=== PATIENT | male | born 1960 | race Caucasian/White ===

== ENCOUNTER 2018-12-11 11:51 | Day surgery (SDC) | payer OTHER ==
[~2018-12-11] VITALS: Ht 185.4 cm; Wt 99.9 kg
[~2018-12-11 11:51] MED LIST: Aspir 8181 MG PO; CLIN300 PO; CYCL10 PO; DOXA4 PO; Doxazosin Mesyla4 MG PO; METO25ER PO; METOPROLOL SUCC25 MG PO; OXYC5 PO; RABE20 PO; RABEPRAZOLE SOD20 MG PO; ROPI.25 PO; Singulair10 MG PO; XARELTO15 MG PO; XARELTO20 MG PO
--- NOTE | 2018-12-11 12:30 | NUR ---
12/11/18 1230 THANIA DOLAN 1 IV ATTEMPT IN RHAND BY MA VEIN BLEW 2 IV ATTEMPT BY MA VALVE 3 ATTEMPT BY RN VALVE 4 ATTEMPT BY RN ON LH VALVE 5 ATTEMT BY CHARGE IN RAC VALVE 6 ATTEMPT BY CHARGE IN R THUMB SUCCESSFUL
--- NOTE | 2018-12-11 12:58 | NUR ---
12/11/18 1258 Carlitos Cobos ALSO USED THE FINK 60 FOR DILITATION.
== END 2018-12-11 13:35 | disposition home or self-care (01) ==
LOC: ORSCSDS 11:51
PROVIDERS: Internal Medicine Gastroenterology
PROC: 0DB58ZX Excision of Esophagus, Via Natural or Artificial Opening Endoscopic, Diagnostic (ICD-10-PCS; principal; 2018-12-11 13:00)
PROC: 0D757ZZ Dilation of Esophagus, Via Natural or Artificial Opening (ICD-10-PCS; principal; 2018-12-11 13:00)
PROC: 0DB68ZX Excision of Stomach, Via Natural or Artificial Opening Endoscopic, Diagnostic (ICD-10-PCS; principal; 2018-12-11 13:00)
PROC: 0D758ZZ Dilation of Esophagus, Via Natural or Artificial Opening Endoscopic (ICD-10-PCS; principal; 2018-12-11 13:00)
DX: R13.10 Dysphagia, unspecified (principal); K21.9 Gastro-esophageal reflux disease without esophagitis; K31.7 Polyp of stomach and duodenum; K20.0 Eosinophilic esophagitis; K22.2 Esophageal obstruction; J45.909 Unspecified asthma, uncomplicated; G47.33 Obstructive sleep apnea (adult) (pediatric); Z79.899 Other long term (current) drug therapy; Z79.82 Long term (current) use of aspirin
CPT/HCPCS: 88305; 88342; J2704; J7120

== ENCOUNTER 2022-09-12 09:05 | Emergency (ER) | payer OTHER ==
[~2022-09-12] VITALS: Ht 185.4 cm; Wt 102.5 kg
[2022-09-12] MEDS ORDERED: PRED10 PO (09:28)
[2022-09-12 09:45] VITALS: BP 108/72
[2022-09-14] MEDS ORDERED: PRED20 PO (04:48)
== END 2022-09-12 09:57 | disposition home or self-care (01) ==
LOC: ER 09:05
DX: L50.9 Urticaria, unspecified (principal); Z88.1 Allergy status to other antibiotic agents; Z79.899 Other long term (current) drug therapy; Z79.52 Long term (current) use of systemic steroids; Z79.82 Long term (current) use of aspirin; I10 Essential (primary) hypertension
CPT/HCPCS: 99282; J7512

== ENCOUNTER 2022-09-14 02:33 | Emergency (ER) | payer OTHER | END 2022-09-14 04:57 | disposition home or self-care (01) | LOC: ER 02:33 | DX: L50.9 Urticaria, unspecified (principal); Z88.1 Allergy status to other antibiotic agents; Z79.899 Other long term (current) drug therapy; Z79.52 Long term (current) use of systemic steroids; Z79.82 Long term (current) use of aspirin; I10 Essential (primary) hypertension ==

== ENCOUNTER 2024-04-26 08:15 | Day surgery (SDC) | payer OTHER ==
[~2024-04-26] VITALS: Ht 185.4 cm; Wt 109.3 kg
[2024-04-26] VITALS (12 sets, daily range): BP systolic 105–184; BP diastolic 57–124
[~2024-04-26 08:15] MED LIST changes: +LOSA50 PO; +Lactated Ringer's 1,000 ML IV SCH; +MELO7.5 PO; +PRED10 PO; +PRED20 PO
[2024-04-26] MEDS ORDERED: propofoL 20 ML IV ONE (08:16)
[2024-04-26] MEDS ORDERED: FentaNYL Citrate 50 MCG/ML 2 ML Injection ONE ×3 (08:16→11:10)
[2024-04-26] MEDS ORDERED: Midazolam HCl 1MG / ML 2ML Vial ONE (08:16)
--- NOTE | 2024-04-26 08:30 | NUR ---
Patient confirms NPO status and agrees with scheduled surgery. Pre-Op teaching done. Pt verbalizes understanding.Ambulatory in Day Surgery History, Chart, Medications and Allergies reviewed before start of procedure.Patient States Post-Procedure ride home has been arranged. Patient reports completing Chlorhexadine shower X2 prior to admission to hospital.
[2024-04-26] MEDS ORDERED: Bupivacaine 0.5% HCl 5 MG/ML 30MLVIAL ONE (09:11)
[2024-04-26] MEDS ORDERED: Bupivacaine 0.25% Epi 1:200000 30 ML Vial ONE (09:11)
[2024-04-26] MEDS ORDERED: Ondansetron HCl 2 MG / ML 2ML Vial ONE (09:30)
[2024-04-26] MEDS ORDERED: Ketorolac Tromethamine 30mg Vial ONE (09:30)
[2024-04-26] MEDS ORDERED: Dexamethasone Sod Phos 10 MG/ML 1ML VIAL ONE (09:30)
[2024-04-26] MEDS ORDERED: Phenylephrine HCl 100 MCG/ML-NS 10MLSYR (1MG/10ML) ONE (09:34)
[2024-04-26] MEDS ORDERED: Sugammadex Sodium 200 MG/2ML SDV (100 MG/ML) ONE (10:34)
[2024-04-26] MEDS ORDERED: OxyCODONE 5 mg/Acetamin 325 mg TABLET PO PRN (11:35)
--- NOTE | 2024-04-26 12:02 | NUR ---
PT UP GETTING DRESSED SLEF WITH STEADY GAIT. PAIN AT A TOLERABLE LEVEL AFTER RECEIVING PAIN PILL AT 11:48. IV OUT CATH INTACT, SITE CLEAR. DISCHARGE INSTRUCTIONS PROVIDED. VSS. ALL BELONNGS RETURNED TO PATIENT. GLASSES ON FACE.
== END 2024-04-26 23:00 | disposition home or self-care (01) ==
LOC: ORSCMMR 08:15 → ORD 09:30 → ORSCMMR 09:30
PROVIDERS: Surgery
PROC: 0WUF4JZ Supplement Abdominal Wall with Synthetic Substitute, Percutaneous Endoscopic Approach (ICD-10-PCS; principal; 2024-04-26 09:30)
PROC: 8E0W4CZ Robotic Assisted Procedure of Trunk Region, Percutaneous Endoscopic Approach (ICD-10-PCS; principal; 2024-04-26 09:30)
DX: K42.0 Umbilical hernia with obstruction, without gangrene (principal); I10 Essential (primary) hypertension; K21.9 Gastro-esophageal reflux disease without esophagitis; N40.0 Benign prostatic hyperplasia without lower urinary tract symptoms; Z79.899 Other long term (current) drug therapy
CPT/HCPCS: A9270; C1781; J1100; J1885; J2250; J2371; J2405; J2704; J3010; J7120

== ENCOUNTER → 2024-12-09 | Outpatient (CLI) | payer OTHER ==
[~2024-12-09] MED LIST changes: -Lactated Ringer's 1,000 ML IV SCH
[2024-12-09 10:27] LABS: BASOPHILS ABSOLUTE AUTO 0.07 K/mm3 (0.00-0.23); BASOPHILS PERCENT AUTO 1 % (0-2); EOSINOPHILS ABSOLUTE AUTO 0.40 K/mm3 (0.00-0.68); EOSINOPHILS PERCENT AUTO 7 % (0-6); Hematocrit 39.7 % (37.0-53.0); Hemoglobin 13.9 g/dL (13.5-17.5); IMMATURE GRAN ABSOLUTE AUTO 0.01 K/mm3 (0.00-0.10); IMMATURE GRAN PERCENT AUTO 0 % (0-1); LYMPHOCYTES ABSOLUTE AUTO 1.31 K/mm3 (0.84-5.20); LYMPHOCYTES PERCENT AUTO 22 % (21-46); MONOCYTES ABSOLUTE AUTO 0.36 K/mm3 (0.16-1.47); MONOCYTES PERCENT AUTO 6 % (4-13); Mean Corpuscular HGB Conc 35.0 g/dL (31.5-36.5); Mean Corpuscular Volume 82 fL (80-100); NEUTROPHILS ABSOLUTE AUTO 3.72 K/mm3 (1.96-9.15); NEUTROPHILS PERCENT AUTO 63 % (41-73); NRBC ABSOLUTE 0.00 K/mm3 (0.00-0.02); NRBC Auto 0.0 /100 WBC (0.0-0.2); Platelet Count 144 K/mm3 (150-400); RDW Coefficient Variation 12.0 % (11.7-14.2); RDW Standard Deviation 36.3 fL (35.1-46.3)
[2024-12-09 10:39] LABS: Alanine Aminotransfer (ALT/SGP 39.0 U/L (12-78); Albumin, Blood 3.7 g/dL (3.4-5.0); Albumin/Globulin Ratio 1.0 (0.8-1.8); Anion Gap 14.0 mmol/L (6-16); Aspartate Aminotrans (AST/SGOT 20.0 U/L (12-37); Bilirubin, Total 0.6 mg/dL (0.1-1.0); Blood Urea Nitrogen 19.0 mg/dL (8-24); CO2, Blood 28.0 mmol/L (21-32); Calcium, Blood 9.5 mg/dL (8.5-10.1); Chloride, Blood 105.0 mmol/L (98-108); Creatinine, Blood 1.18 mg/dL (0.60-1.20); Globulin, Blood 3.6 g/dL (2.2-4.0); Glucose, Blood 104.0 mg/dL (70-99); Potassium, Blood 3.9 mmol/L (3.5-5.5); Sodium, Blood 143.0 mmol/L (136-145); Total Protein, Blood 7.3 g/dL (6.4-8.2)
== END ==
LOC: LAB SHORT 10:22 → LAB 10:22
PROVIDERS: Family Medicine
DX: M79.89 Other specified soft tissue disorders (principal); M25.50 Pain in unspecified joint
CPT/HCPCS: 80053; 83880; 85025; 85651; 86140